=== PATIENT | female | born 1990 | race Caucasian/White ===

== ENCOUNTER 2017-06-10 00:27 | Inpatient (IN) | payer MEDICAID, OTHER ==
[~2017-06-10] VITALS: Ht 162.6 cm; Wt 98.8 kg
[2017-06-10] MEDS ORDERED: SODIUM CHLORIDE 0.9% 1,000ML IVBOLUS ONE ×2 (01:00→02:00)
[2017-06-10] MEDS ORDERED: ACETAMINOPHEN 500 MG TABLET PO ONE (01:00)
[2017-06-10] MEDS ORDERED: SODIUM CHLORIDE FLUSH 10ML SYR IVF ONE (01:00)
[2017-06-10] MEDS ORDERED: ACETAMINOPHEN 500 MG TABLET ONE (01:05)
[2017-06-10 01:44] LABS: HEMATOCRIT 34.6 % (34.6-47.8); HEMOGLOBIN 11.4 g/dL (11.7-16.4); WHITE BLOOD COUNT 22.3 x10^3/uL (3.4-10)
[2017-06-10 01:55] LABS: ASPARTATE AMINO TRANSFERASE 26 U/L (15-37); BLOOD UREA NITROGEN 10 mg/dL (7-18)
[2017-06-10] MEDS ORDERED: IBUPROFEN 200 MG TABLET PO ONE ×2 (02:00→02:30)
[2017-06-10] MEDS ORDERED: IBUPROFEN 200 MG TABLET ONE (02:05)
[2017-06-10 02:13] LABS: DIFF TOTAL CELLS COUNTED 100 CELL DIFF
[2017-06-10 02:15] LABS: VERIFY COUNTS? YES
[2017-06-10] MEDS ORDERED: CEFTRIAXONE PMX 2GM/50ML 50 ML ONE (02:42)
[2017-06-10 02:46] LABS: RAPID INFLUENZA A Negative (Negative); RAPID INFLUENZA B Negative (Negative)
[2017-06-10] MEDS ORDERED: SODIUM CHLORIDE 0.9% 1,000 ML IV SCH (02:54)
[2017-06-10] MEDS ORDERED: CEFTRIAXONE PMX 2GM/50ML 50 ML IV SCH (03:00)
[2017-06-10] MEDS ORDERED: ONDANSETRON 2MG/ML, 2ML IVPush PRN (03:00)
[2017-06-10 03:02] LABS: HCG UR LOT HCG7030192; HCG UR OBC PASS
[2017-06-10 03:36] VITALS: BP 93/61
[2017-06-10] MEDS: morphine SULFATE 10 MG/ML, 1ML IVPush PRN ×8 (03:58→21:47)
[2017-06-10 04:03] VITALS: BP 93/61
[2017-06-10 08:25] VITALS: BP 98/83
[2017-06-10] MEDS: ENOXAPARIN 40 MG/0.4 ML SQ SCH (10:10)
[2017-06-10 14:55] VITALS: BP 131/84
[2017-06-10] MEDS: D5%-0.45% NACL 1,000 ML IV SCH ×2 (16:07→22:44)
[2017-06-10] MEDS: ACETAMINOPHEN 325 MG TABLET PO PRN (16:14)
[2017-06-10 19:25] VITALS: BP 116/64
[2017-06-11] MEDS: morphine SULFATE 10 MG/ML, 1ML IVPush PRN ×2 (01:06→07:57)
[2017-06-11 01:23] VITALS: BP 105/70
[2017-06-11] MEDS ORDERED: SODIUM CHLORIDE 0.9% 1,000 ML IV SCH (02:54)
[2017-06-11] MEDS: CEFTRIAXONE PMX 2GM/50ML 50 ML IV SCH (03:09)
[2017-06-11 03:47] LABS: HEMATOCRIT 30.8 % (34.6-47.8); HEMOGLOBIN 10.1 g/dL (11.7-16.4); WHITE BLOOD COUNT 29.9 x10^3/uL (3.4-10)
[2017-06-11 03:51] LABS: BLOOD UREA NITROGEN 8 mg/dL (7-18)
[2017-06-11 04:32] LABS: DIFF TOTAL CELLS COUNTED 100 CELL DIFF
[2017-06-11 04:37] LABS: VERIFY COUNTS? YES
[2017-06-11] MEDS: D5%-0.45% NACL 1,000 ML IV SCH ×2 (07:57→16:13)
[2017-06-11 09:04] VITALS: BP 116/77
[2017-06-11] MEDS: ENOXAPARIN 40 MG/0.4 ML SQ SCH (10:35)
[2017-06-11] MEDS: ACETAMINOPHEN 325 MG TABLET PO PRN (10:35)
[2017-06-11 13:04] VITALS: BP 102/69
[2017-06-11] MEDS ORDERED: OMNIPAQUE 350 MG/ML, 150 ML BOTTLE ONE (13:23)
[2017-06-11] MEDS: OXYcodone/APAP 5/325MG TABLET PO PRN ×2 (16:18→20:41)
[2017-06-11 18:51] VITALS: BP 101/59
[2017-06-12 00:46] VITALS: BP 100/66
[2017-06-12] MEDS: D5%-0.45% NACL 1,000 ML IV SCH ×2 (03:03→11:23)
[2017-06-12] MEDS: OXYcodone/APAP 5/325MG TABLET PO PRN ×2 (03:03→09:57)
[2017-06-12] MEDS: CEFTRIAXONE PMX 2GM/50ML 50 ML IV SCH (03:03)
[2017-06-12 05:03] LABS: HEMATOCRIT 31.3 % (34.6-47.8); HEMOGLOBIN 10.3 g/dL (11.7-16.4)
[2017-06-12 05:17] LABS: BLOOD UREA NITROGEN 8 mg/dL (7-18)
[2017-06-12 08:25] VITALS: BP 130/87
[2017-06-12] MEDS: ENOXAPARIN 40 MG/0.4 ML SQ SCH (09:57)
[2017-06-12 13:20] VITALS: BP 122/83
[2017-06-12] MEDS ORDERED: OXYC1TAB7 PO (15:42)
[2017-06-12] MEDS ORDERED: ACID1TAB7 PO (15:42)
[2017-06-12] MEDS ORDERED: LEVO750T26 PO (15:42)
[2017-06-12] MEDS ORDERED: ACET325T14 PO (15:42)
[2017-06-12] MEDS ORDERED: LACTOBACILLUS CHEW TABLET PO SCH (16:00)
== END 2017-06-12 19:36 | disposition left against medical advice (07) | DRG 872 ==
LOC: ED 02:06 → EDIP 02:54 → 4NOR 03:26
PROVIDERS: ADMIT Family Medicine; ATTEND Family Medicine
DX: A41.51 Sepsis due to Escherichia coli [E. coli] (principal); E44.1 Mild protein-calorie malnutrition; N12 Tubulo-interstitial nephritis, not specified as acute or chronic; D64.9 Anemia, unspecified; E16.2 Hypoglycemia, unspecified; G89.29 Other chronic pain; R65.20 Severe sepsis without septic shock; Z90.49 Acquired absence of other specified parts of digestive tract; Z90.710 Acquired absence of both cervix and uterus; Z68.37 Body mass index [BMI] 37.0-37.9, adult; Z88.8 Allergy status to other drugs, medicaments and biological substances; M54.9 Dorsalgia, unspecified
CPT/HCPCS: 36415; 71010; 74178; 80048; 80053; 81001; 81025; 82962; 83605; 84145; 85025; 87040; 87077; 87086; 87186; 87400; 93005; 96365; J0696; J1650; Q9967; J2270; J7030